=== PATIENT | female | born 1990 | race Caucasian/White ===

== ENCOUNTER 2022-04-28 22:20 | Emergency (ER) | payer OTHER ==
[~2022-04-28] VITALS: Ht 170.2 cm; Wt 59.0 kg
[2022-04-28 22:23] VITALS: BP 111/68
--- NOTE | 2022-04-28 22:26 | NUR ---
TO LOBBY A/W BED AMBULATORY
--- NOTE | 2022-04-29 00:35 | NUR ---
called- no show in Lobby or outside.
--- NOTE | 2022-04-29 01:10 | NUR ---
second attempt to locate pt from lobby. no answer.
--- NOTE | 2022-04-29 01:30 | NUR ---
3RD ATTEMPT TO LOCATE PT FROM LOBBY. NO ANSWER. NO FURTHER CARE PROVIDED.
--- NOTE | 2022-04-29 01:31 | NUR ---
PATIENT LEFT WITHOUT BEING SEEN BY DR. VILLA. NO FURTHER CARE PROVIDED FOR PATIENT.
== END 2022-04-29 00:35 | disposition left against medical advice (07) ==
LOC: MED 22:20
DX: R20.0 Anesthesia of skin (principal); Z53.21 Procedure and treatment not carried out due to patient leaving prior to being seen by health care provider
CPT/HCPCS: 93005